=== PATIENT | female | born 1990 | race Caucasian/White ===

== ENCOUNTER 2016-10-20 17:00 | Emergency (ER) | payer OTHER ==
--- NOTE | 2016-10-20 17:18 | ED CLINICAL REPORT ---
Clinical Report - Physicians/Mid Levels [facility] [address] [place] [address] 10/20/2016 17:01 [id number] Time Seen: 17:08 Oct 20 2016. Arrived- By private vehicle. Historian- patient. HISTORY OF PRESENT ILLNESS Chief Complaint: DENTAL PAIN. 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 Pain described as moderate. No nasal discharge. (Patient reports right upper dental pain. Patient reports onto the face. Denies any difficulty swallowing. Reports chronic history of dental pain, worsened after childbirth. Denies any cough. Reports facial swelling. Has been using saltwater rinses, as well as some Motrin. Reports she wants to see a dentist next week. Denies otalgia.). REVIEW OF SYSTEMS No fever, cough, difficulty breathing, nausea or diarrhea. No joint pain or vomiting. All systems otherwise negative, except as recorded above. PAST HISTORY Problems: Asthma. Dental Caries. Additional Surgeries: Appendectomy. Medications: None. Allergies: No Known Drug Allergy. SOCIAL HISTORY Current every day smoker. No alcohol use. ADDITIONAL NOTES The nursing notes have been reviewed. PHYSICAL EXAM Vital Signs: 10/20/2016 17:05 BP: 117/77. HR: 69. RR: 18. O2 saturation: 99%. Temp: 98.1 F. Pain level now: 10/10. Appearance: Alert. Head: Normal external inspection. ENT: Dental decay (Extensive right upper dental decay, as well as left lower decay. Patient with uvula midline.). Ears normal. Nose normal. Lips normal. Uvula midline. No purulent nasal discharge. Neck: Trachea midline. No adenopathy. No meningeal signs. CVS: Normal heart rate and rhythm. Heart sounds normal. Respiratory: No respiratory distress. Breath sounds normal. Neuro: Oriented X 3. PROGRESS AND PROCEDURES Course of Care: Uvula midline, facial swelling, no palpable abscess. Patient to start antibiotics. Patient's with no signs of otitis externa. No facial rash present. No signs of Murray's angina. Full sentences. Able to tolerate her secretions well. Patient is stable. The patient's symptoms are unchanged. Disposition: Discharged. CLINICAL IMPRESSION Moderate dental pain. INSTRUCTIONS Drink plenty of fluids. Prescription Medications: Hydrocodone/APAP 5mg / 325mg: take 1 orally every 6 hours as needed for pain. Dispense ten (10). No refill. Cleocin 300 mg: take 1 capsule orally every 8 hours for 10 days. No refill. Substitution is permissible. Follow-up: Follow up with a specialist. (Electronically signed by Kaylie Retana P.A.-C 10/20/2016 17:43)
--- NOTE | 2016-10-20 17:18 | ED NURSING NOTES ---
Clinical Report - Nurses [facility] [place] [address] [place] [address] 10/20/2016 17:01 [id number] Triage time 17:05. Acuity: LEVEL 4. Chief Complaint: RIGHT UPPER TOOTHACHE and SWELLING OF JAW / FACE. --17:10 Jocelyn Burciaga R.N. 17:05 10/20/16. BP: 117/77. HR: 69. RR: 18. O2 saturation: 99%. Temp: 98.1 F. Pain level now: 05/03. --17:10 Jocelyn Burciaga R.N. Weight: 61.2 kg stated. Height/Length: 63 inches Per Patient. BMI: 23.9. --17:10 Jocelyn Burciaga R.N. Medications None. --17:07 Jocelyn Burciaga R.N. Allergies No Known Drug Allergy. --17:07 Jocelyn Burciaga R.N. History Arrived by private vehicle. Onset. (3 days ago). She has a dental appointment scheduled (10/29). She has had ear pain. ( headed). She has had a toothache. 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 SOCIAL HX: Heavy tobacco smoker (cigarette)- less than 1 pack per day. No alcohol use or drug use. No infectious disease exposure. SELF HARM ASSESSMENT: A self harm assessment was performed. The patient answered "no" to the question "Do you have thoughts of harming or killing yourself?". --17:10 Jocelyn Burciaga R.N. PROBLEMS: Asthma. Dental Caries. --17:08 Jocelyn Burciaga R.N. ADDITIONAL SURGERIES: Appendectomy. --17:08 Jocelyn Burciaga R.N. Interventions ID band on patient. To treatment room. --17:10 Jocelyn Burciaga R.N. PHYSICAL ASSESSMENT Ambulatory to room. GENERAL / NEURO / PSYCH: Alert. Oriented X 4. Appears in no acute distress. (pt reports headache). HEENT: Pupils equal, round and reactive to light. Dental tenderness. Dental decay (right upper incisor area). RESPIRATORY: Respirations not labored. SKIN: Skin is warm. --17:12 Jocelyn Burciaga R.N. NURSING PROGRESS NOTES Call light placed in reach. Bed placed in lowest position. Patient ready for evaluation- chart flagged. Patient waiting for evaluation. --17:12 Jocelyn Burciaga R.N. 17:21 10/20/2016 Hydrocodone-APAP (Hydrocodone-Acetaminophen) PO Tablets 1 tab given. --17:21 Jocelyn Burciaga R.N. 17:22 10/20/2016 Motrin PO Oral Suspension 800 mg given. --17:22 Jocelyn Burciaga R.N. 17:22 10/20/2016 Clindamycin PO Capsules 300 mg given. --17:22 Jocelyn Burciaga R.N. DISPOSITION / DISCHARGE Departure time: 1723. Condition at departure: unchanged and stable. No learning barriers present. Discharge instructions provided and reviewed with the patient. Reviewed warnings. Reviewed medication(s) side effects information. Prescription(s) given to the patient. Reviewed referral to a dentist. Patient verbalized understanding. Written instructions provided in Pashto. The patient was discharged by the physician payroll and benefits assistant. She was discharged home and accompanied by analytical laboratory technician. She left the Emergency Department ambulatory and via private vehicle. Tunnel Elastic Operator Chainstitch driving. --17:34 Jocelyn Burciaga R.N. 17:33 10/20/16. BP: 117/77. HR: 69. RR: 18. O2 saturation: 99%. Pain level now: 05/03. --17:34 Jocelyn Burciaga R.N. Locked/Released at 10/20/2016 17:36 by Jocelyn Burciaga R.N.
--- NOTE | 2016-10-20 17:18 | ED ORDER SUMMARY ---
..... Patient: DARLYN ORTIZ OrderSheet [facility] VisitID: [id number] [place] [address] 25y, F Registration Date/Time: 10/20/2016 ORDER SHEET Weight: 61.2 kg (stated) Allergies: No Known Drug Allergy GENERAL ORDERS: MEDICATION ORDERS: Clindamycin PO 300 mg (NOW) (17:17 10/20/2016 EKoroleva P.A.-C) (Ack 17:17 SStone R.N.) (17:22 SStone R.N.) Motrin PO 800 mg (NOW) (17:17 10/20/2016 EKoroleva P.A.-C) (Ack 17:17 SStone R.N.) (17:22 SStone R.N.) Hydrocodone-APAP PO 5/325 mg (NOW) (17:17 10/20/2016 EKmatheusleadelaida P.A.-C) (Ack 17:17 SStone R.N.) (17:22 SStone R.N.) IV FLUIDS: ORDER SHEET NOTES: [Electronically signed by Jocelyn Burciaga R.N. (17:36 10/20/2016)] [Electronically signed by Kaylie Retana P.A.-C (17:43 10/20/2016)] [Electronically locked/signed by Jocelyn Burciaga R.N. (17:36 10/20/2016)]
--- NOTE | 2016-10-20 17:18 | ED ORDER SUMMARY ---
..... Patient: DARLYN ORTIZ OrderSheet [facility] VisitID: [id number] [place] [address] 25y, F Registration Date/Time: 10/20/2016 ORDER SHEET Weight: 61.2 kg (stated) Allergies: No Known Drug Allergy GENERAL ORDERS: MEDICATION ORDERS: Clindamycin PO 300 mg (NOW) (17:17 10/20/2016 EKoroleva P.A.-C) (Ack 17:17 SStone R.N.) (17:22 SStone R.N.) Motrin PO 800 mg (NOW) (17:17 10/20/2016 EKoroleva P.A.-C) (Ack 17:17 SStone R.N.) (17:22 SStone R.N.) Hydrocodone-APAP PO 5/325 mg (NOW) (17:17 10/20/2016 EKmatheusleadelaida P.A.-C) (Ack 17:17 SStone R.N.) (17:22 SStone R.N.) IV FLUIDS: ORDER SHEET NOTES: [Electronically signed by Jocelyn Burciaga R.N. (17:36 10/20/2016)] [Electronically signed by Kaylie Retana P.A.-C (17:43 10/20/2016)] [Electronically locked/signed by Jocelyn Burciaga R.N. (17:36 10/20/2016)]
--- NOTE | 2016-10-20 17:18 | ED NURSING NOTES ---
Clinical Report - [place] [place] [address] 10/20/2016 17:01 [id number] TRI[facility] Triage time 17:05. Acuity: LEVEL 4. Chief Complaint: RIGHT UPPER TOOTHACHE and SWELLING OF JAW / FACE. --17:10 Jocelyn Burciaga R.N. 17:05 10/20/16. BP: 117/77. HR: 69. RR: 18. O2 saturation: 99%. Temp: 98.1 F. Pain level now: 05/03. --17:10 Jocelyn Burciaga R.N. Weight: 61.2 kg stated. Height/Length: 63 inches Per Patient. BMI: 23.9. --17:10 Jocelyn Burciaga R.N. Medications None. --17:07 Jocelyn Burciaga R.N. Allergies No Known Drug Allergy. --17:07 Jocelyn Burciaga R.N. History Arrived by private vehicle. Onset. (3 days ago). She has a dental appointment scheduled (10/29). She has had ear pain. ( headed). She has had a toothache. 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 SOCIAL HX: Heavy tobacco smoker (cigarette)- less than 1 pack per day. No alcohol use or drug use. No infectious disease exposure. SELF HARM ASSESSMENT: A self harm assessment was performed. The patient answered "no" to the question "Do you have thoughts of harming or killing yourself?". --17:10 Jocelyn Burciaga R.N. PROBLEMS: Asthma. Dental Caries. --17:08 Jocelyn Burciaga R.N. ADDITIONAL SURGERIES: Appendectomy. --17:08 Jocelyn Burciaga R.N. Interventions ID band on patient. To treatment room. --17:10 Jocelyn Burciaga R.N. PHYSICAL ASSESSMENT Ambulatory to room. GENERAL / NEURO / PSYCH: Alert. Oriented X 4. Appears in no acute distress. (pt reports headache). HEENT: Pupils equal, round and reactive to light. Dental tenderness. Dental decay (right upper incisor area). RESPIRATORY: Respirations not labored. SKIN: Skin is warm. --17:12 Jocelyn Burciaga R.N. NURSING PROGRESS NOTES Call light placed in reach. Bed placed in lowest position. Patient ready for evaluation- chart flagged. Patient waiting for evaluation. --17:12 Jocelyn Burciaga R.N. 17:21 10/20/2016 Hydrocodone-APAP (Hydrocodone-Acetaminophen) PO Tablets 1 tab given. --17:21 Jocelyn Burciaga R.N. 17:22 10/20/2016 Motrin PO Oral Suspension 800 mg given. --17:22 Joeclyn Burciaga R.N. 17:22 10/20/2016 Clindamycin PO Capsules 300 mg given. --17:22 Jocelyn Burciaga R.N. DISPOSITION / DISCHARGE Departure time: 1723. Condition at departure: unchanged and stable. No learning barriers present. Discharge instructions provided and reviewed with the patient. Reviewed warnings. Reviewed medication(s) side effects information. Prescription(s) given to the patient. Reviewed referral to a dentist. Patient verbalized understanding. Written instructions provided in Telugu. The patient was discharged by the physician civil engineering assistant. She was discharged home and accompanied by bottom stop attacher. She left the Emergency Department ambulatory and via private vehicle. Hop Farm Worker driving. --17:34 Jocelyn Burciaga R.N. 17:33 10/20/16. BP: 117/77. HR: 69. RR: 18. O2 saturation: 99%. Pain level now: 05/03. --17:34 Jocelyn Burciaga R.N. Locked/Released at 10/20/2016 17:36 by Jocelyn Burciaga R.N.
--- NOTE | 2016-10-20 17:18 | ED CLINICAL REPORT ---
Clinical Report - Physicians/Mid Levels [facility] [address] [place] [address] 10/20/2016 17:01 [id number] Time Seen: 17:08 Oct 20 2016. Arrived- By private vehicle. Historian- patient. HISTORY OF PRESENT ILLNESS Chief Complaint: DENTAL PAIN. 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 Pain described as moderate. No nasal discharge. (Patient reports right upper dental pain. Patient reports onto the face. Denies any difficulty swallowing. Reports chronic history of dental pain, worsened after childbirth. Denies any cough. Reports facial swelling. Has been using saltwater rinses, as well as some Motrin. Reports she wants to see a dentist next week. Denies otalgia.). REVIEW OF SYSTEMS No fever, cough, difficulty breathing, nausea or diarrhea. No joint pain or vomiting. All systems otherwise negative, except as recorded above. PAST HISTORY Problems: Asthma. Dental Caries. Additional Surgeries: Appendectomy. Medications: None. Allergies: No Known Drug Allergy. SOCIAL HISTORY Current every day smoker. No alcohol use. ADDITIONAL NOTES The nursing notes have been reviewed. PHYSICAL EXAM Vital Signs: 10/20/2016 17:05 BP: 117/77. HR: 69. RR: 18. O2 saturation: 99%. Temp: 98.1 F. Pain level now: 10/10. Appearance: Alert. Head: Normal external inspection. ENT: Dental decay (Extensive right upper dental decay, as well as left lower decay. Patient with uvula midline.). Ears normal. Nose normal. Lips normal. Uvula midline. No purulent nasal discharge. Neck: Trachea midline. No adenopathy. No meningeal signs. CVS: Normal heart rate and rhythm. Heart sounds normal. Respiratory: No respiratory distress. Breath sounds normal. Neuro: Oriented X 3. PROGRESS AND PROCEDURES Course of Care: Uvula midline, facial swelling, no palpable abscess. Patient to start antibiotics. Patient's with no signs of otitis externa. No facial rash present. No signs of Murray's angina. Full sentences. Able to tolerate her secretions well. Patient is stable. The patient's symptoms are unchanged. Disposition: Discharged. CLINICAL IMPRESSION Moderate dental pain. INSTRUCTIONS Drink plenty of fluids. Prescription Medications: Hydrocodone/APAP 5mg / 325mg: take 1 orally every 6 hours as needed for pain. Dispense ten (10). No refill. Cleocin 300 mg: take 1 capsule orally every 8 hours for 10 days. No refill. Substitution is permissible. Follow-up: Follow up with a specialist. (Electronically signed by Kaylie Retana P.A.-C 10/20/2016 17:43)
--- NOTE | 2016-10-20 17:43 | ED MAR SUMMARY ---
..... Medication Administration Record [facility] [address] [place] [address] Patient: DARLYN ORTIZ Visit ID: [id number] 25y, F Weight: 61.2 kg Height/Length: 63 in BMI: 23.9 ALLERGIES: No Known Drug Allergy Given 17:10/20/2016 Jocelyn Burciaga R.N. Medication Administered: HYDROCODONE-APAP [PO] (HYDROCODONE-ACETAMINOPHEN), Dose: 1 tab Tablets PO. Medication Ordered: Hydrocodone-APAP PO 5/325 mg (NOW). Given 17:10/20/2016 Jocelyn Burciaga R.N. Medication Administered: CLINDAMYCIN [PO], Dose: 300 mg Capsules PO. Medication Ordered: Clindamycin PO 300 mg (NOW). Given 17:10/20/2016 Jocelyn Burciaga R.N. Medication Administered: MOTRIN [PO], Dose: 800 mg Oral Suspension PO. Medication Ordered: Motrin PO 800 mg (NOW).
--- NOTE | 2016-10-20 17:43 | ED MED RECONCILIATION SUMMARY ---
Patient: DARLYN ORTIZ Medication Reconciliation Report [facility] VisitID: [id number] [address] [place] [address] 25y, F Registration Date/Time: 10/20/2016 Weight: 61.2 kg Height/Length: 63 in. BMI: 23.9 ALLERGIES: No Known Drug Allergy The patient's Home Medications are listed below: NONE. The source(s) of the original Home Medication information: Not obtained. The following Medications were given to the patient in the Emergency Department: Hydrocodone-APAP [PO] PO 1 tab, administered: 10/20/2016 5:21:00 PM Motrin [PO] PO 800 mg, administered: 10/20/2016 5:22:00 PM Clindamycin [PO] PO 300 mg, administered: 10/20/2016 5:22:00 PM The following Medications were prescribed to the patient: Hydrocodone/APAP 5mg / 325mg: take 1 orally every 6 hours as needed for pain. Dispense ten (10). No refill. -- Kaylie Retana P.A.-Roberto Carlos Cleocin 300 mg: take 1 capsule orally every 8 hours for 10 days. No refill. Substitution is permissible. -- Kaylie Retana P.A.-C
--- NOTE | 2016-10-20 17:43 | ED DISCHARGE INSTRUCTIONS ---
Patient: DARLYN ORTIZ General Instructions [facility] VisitID: [id number] [place] [place] [address] 25y, F Registration Date/Time: 10/20/2016 Moderate dental pain. INSTRUCTIONS Drink plenty of fluids. Prescription Medications: Hydrocodone/APAP 5mg / 325mg: take 1 orally every 6 hours as needed for pain. Dispense ten (10). No refill. Cleocin 300 mg: take 1 capsule orally every 8 hours for 10 days. No refill. Substitution is permissible. Follow-up: Follow up with a specialist. ADDITIONAL INFORMATION Dental Pain A crack or cavity in the tooth, which exposes the sensitive inner area of the tooth can cause tooth pain. An infection in the gum or the root of the tooth can cause pain and swelling. The pain is often made worse by drinking hot or cold fluids, or biting on hard foods. Pain may spread from the tooth to the ear or jaw on the same side. Home Care: Avoid hot and cold foods and liquids since your tooth may be sensitive to temperature changes. If your tooth is chipped or cracked, or if there is a large open cavity, apply OIL OF CLOVES (available xoib-qsv-drxigqi in drug stores) directly to the tooth to reduce pain. Some pharmacies carry an wbzm-oev-txykrno "toothache kit." This contains a paste, which can be applied over the exposed tooth to decrease sensitivity. A cold pack on your jaw over the sore area may help reduce pain. You may use acetaminophen (Tylenol) or ibuprofen (Motrin, Advil) to control pain, unless another medicine was prescribed. [ NOTE: If you have chronic liver or kidney disease or ever had a stomach ulcer or GI bleeding, talk with your doctor before using these medicines.] If you have signs of an infection, an antibiotic will be given. Take it as directed. Follow-Up as directed with a dentist. Your pain may go away with the treatment given. However, only a dentist can fully evaluate and treat the cause and prevent the pain from coming back again. TOOTHACHE IS A SIGN OF DISEASE IN YOUR TOOTH AND SHOULD BE EXAMINED AND TREATED BY A DENTIST. Get Prompt Medical Attention if any of the following occur: Your face becomes swollen or red Pain worsens or spreads to the neck Fever over 100.4 F (38.0 C) Unusual drowsiness; headache or stiff neck; weakness or fainting Pus drains from the tooth Difficulty swallowing or breathing Hydrocodone Bitartrate, Acetaminophen Oral tablet What is this medicine? ACETAMINOPHEN; HYDROCODONE (a set a MATT virgen fen; denver droe KOE done) is a pain reliever. It is used to treat mild to moderate pain. How should I use this medicine? Take this medicine by mouth. Swallow it with a full glass of water. Follow the directions on the prescription label. If the medicine upsets your stomach, take the medicine with food or milk. Do not take more than you are told to take. Talk to your cable rigger regarding the use of this medicine in children. This medicine is not approved for use in children. What side effects may I notice from receiving this medicine? Side effects that you should report to your doctor or health long term care pharmacist as soon as possible: allergic reactions like skin rash, itching or hives, swelling of the face, lips, or tongue breathing problems confusion feeling faint or lightheaded, falls stomach pain yellowing of the eyes or skin Side effects that usually do not require medical attention (report to your doctor or health long term care pharmacist if they continue or are bothersome): nausea, vomiting stomach upset What may interact with this medicine? alcohol antihistamines isoniazid medicines for depression, anxiety, or psychotic disturbances medicines for sleep muscle relaxants naltrexone narcotic medicines (opiates) for pain phenobarbital ritonavir tramadol What if I miss a dose? If you miss a dose, take it as soon as you can. If it is almost time for your next dose, take only that dose. Do not take double or extra doses. Where should I keep my medicine? Keep out of the reach of children. This medicine can be abused. Keep your medicine in a safe place to protect it from theft. Do not share this medicine with anyone. Selling or giving away this medicine is dangerous and against the law. Store at room temperature between 15 and 30 degrees C (59 and 86 degrees F). Protect from light. Keep container tightly closed. Throw away any unused medicine after the expiration date. Discard unused medicine and used packaging carefully. Pets and children can be harmed if they find used or lost packages. What should I tell my health care provider before I take this medicine? They need to know if you have any of these conditions: brain tumor Crohn's disease, inflammatory bowel disease, or ulcerative colitis drink more than 3 alcohol-containing drinks per day drug abuse or addiction head injury heart or circulation problems kidney disease or problems going to the bathroom liver disease lung disease, asthma, or breathing problems an unusual or allergic reaction to acetaminophen, hydrocodone, other opioid analgesics, other medicines, foods, dyes, or preservatives or trying to get breast-feeding What should I watch for while using this medicine? Tell your doctor or health long term care pharmacist if your pain does not go away, if it gets worse, or if you have new or a different type of pain. You may develop tolerance to the medicine. Tolerance means that you will need a higher dose of the medicine for pain relief. Tolerance is normal and is expected if you take the medicine for a long time. Do not suddenly stop taking your medicine because you may develop a severe reaction. Your body becomes used to the medicine. This does NOT mean you are addicted. Addiction is a behavior related to getting and using a drug for a non-medical reason. If you have pain, you have a medical reason to take pain medicine. Your doctor will tell you how much medicine to take. If your doctor wants you to stop the medicine, the dose will be slowly lowered over time to avoid any side effects. You may get drowsy or dizzy when you first start taking the medicine or change doses. Do not drive, use machinery, or do anything that may be dangerous until you know how the medicine affects you. Stand or sit up slowly. There are different types of narcotic medicines (opiates) for pain. If you take more than one type at the same time, you may have more side effects. Give your health care provider a list of all medicines you use. Your doctor will tell you how much medicine to take. Do not take more medicine than directed. Call emergency for help if you have problems breathing. The medicine will cause constipation. Try to have a bowel movement at least every 2 to 3 days. If you do not have a bowel movement for 3 days, call your doctor or health long term care pharmacist. Too much acetaminophen can be very dangerous. Do not take Tylenol (acetaminophen) or medicines that contain acetaminophen with this medicine. Many non-prescription medicines contain acetaminophen. Always read the labels carefully. Clindamycin Hydrochloride Oral capsule What is this medicine? CLINDAMYCIN (KLIN da MYE sin) is a lincosamide antibiotic. It is used to treat certain kinds of bacterial infections. It will not work for colds, flu, or other viral infections. How should I use this medicine? Take this medicine by mouth with a full glass of water. Follow the directions on the prescription label. You can take this medicine with food or on an empty stomach. If the medicine upsets your stomach, take it with food. Take your medicine at regular intervals. Do not take your medicine more often than directed. Take all of your medicine as directed even if you think your are better. Do not skip doses or stop your medicine early. Talk to your cable rigger regarding the use of this medicine in children. Special care may be needed. What side effects may I notice from receiving this medicine? Side effects that you should report to your doctor or health long term care pharmacist as soon as possible: allergic reactions like skin rash, itching or hives, swelling of the face, lips, or tongue dark urine pain on swallowing redness, blistering, peeling or loosening of the skin, including inside the mouth unusual bleeding or bruising unusually weak or tired yellowing of eyes or skin Side effects that usually do not require medical attention (report to your doctor or health long term care pharmacist if they continue or are bothersome): diarrhea itching in the rectal or genital area joint pain nausea, vomiting stomach pain What may interact with this medicine? chloramphenicol erythromycin kaolin products What if I miss a dose? If you miss a dose, take it as soon as you can. If it is almost time for your next dose, take only that dose. Do not take double or extra doses. Where should I keep my medicine? Keep out of the reach of children. Store at room temperature between 20 and 25 degrees C (68 and 77 degrees F). Throw away any unused medicine after the expiration date. What should I tell my health care provider before I take this medicine? They need to know if you have any of these conditions: kidney disease liver disease stomach problems like colitis an unusual or allergic reaction to clindamycin, lincomycin, or other medicines, foods, dyes like tartrazine or preservatives or trying to get breast-feeding What should I watch for while using this medicine? Tell your doctor or healthcare professional if your symptoms do not start to get better or if they get worse. Do not treat diarrhea with over the counter products. Contact your doctor if you have diarrhea that lasts more than 2 days or if it is severe and watery. You have been given the following additional information: Dental Pain Hydrocodone Bitartrate, Acetaminophen Oral tablet Clindamycin Hydrochloride Oral capsule (Electronically signed by Kaylie Retana P.A.-C 10/20/2016 17:43)
--- NOTE | 2016-10-20 17:43 | ED MED RECONCILIATION SUMMARY ---
Patient: DARLYN ORTIZ Medication Reconciliation Report [facility] VisitID: [id number] [address] [place] [address] 25y, F Registration Date/Time: 10/20/2016 Weight: 61.2 kg Height/Length: 63 in. BMI: 23.9 ALLERGIES: No Known Drug Allergy The patient's Home Medications are listed below: NONE. The source(s) of the original Home Medication information: Not obtained. The following Medications were given to the patient in the Emergency Department: Hydrocodone-APAP [PO] PO 1 tab, administered: 10/20/2016 5:21:00 PM Motrin [PO] PO 800 mg, administered: 10/20/2016 5:22:00 PM Clindamycin [PO] PO 300 mg, administered: 10/20/2016 5:22:00 PM The following Medications were prescribed to the patient: Hydrocodone/APAP 5mg / 325mg: take 1 orally every 6 hours as needed for pain. Dispense ten (10). No refill. -- Kaylie Retana P.A.-Roberto Carlos Cleocin 300 mg: take 1 capsule orally every 8 hours for 10 days. No refill. Substitution is permissible. -- Kaylie Retana P.A.-C
--- NOTE | 2016-10-20 17:43 | ED MAR SUMMARY ---
..... Medication Administration Record [facility] [address] [place] [address] Patient: DARLYN ORTIZ Visit ID: [id number] 25y, F Weight: 61.2 kg Height/Length: 63 in BMI: 23.9 ALLERGIES: No Known Drug Allergy Given 17:10/20/2016 Jocelyn Burciaga R.N. Medication Administered: HYDROCODONE-APAP [PO] (HYDROCODONE-ACETAMINOPHEN), Dose: 1 tab Tablets PO. Medication Ordered: Hydrocodone-APAP PO 5/325 mg (NOW). Given 17:10/20/2016 Jocelyn Burciaga R.N. Medication Administered: CLINDAMYCIN [PO], Dose: 300 mg Capsules PO. Medication Ordered: Clindamycin PO 300 mg (NOW). Given 17:10/20/2016 Jocelyn Burciaga R.N. Medication Administered: MOTRIN [PO], Dose: 800 mg Oral Suspension PO. Medication Ordered: Motrin PO 800 mg (NOW).
--- NOTE | 2016-10-20 17:43 | ED DISCHARGE INSTRUCTIONS ---
Patient: DARLYN ORTIZ General Instructions [facility] VisitID: [id number] [place] [address] 25y, F Registration Date/Time: 10/20/2016 Moderate dental pain. INSTRUCTIONS Drink plenty of fluids. Prescription Medications: Hydrocodone/APAP 5mg / 325mg: take 1 orally every 6 hours as needed for pain. Dispense ten (10). No refill. Cleocin 300 mg: take 1 capsule orally every 8 hours for 10 days. No refill. Substitution is permissible. Follow-up: Follow up with a specialist. ADDITIONAL INFORMATION Dental Pain A crack or cavity in the tooth, which exposes the sensitive inner area of the tooth can cause tooth pain. An infection in the gum or the root of the tooth can cause pain and swelling. The pain is often made worse by drinking hot or cold fluids, or biting on hard foods. Pain may spread from the tooth to the ear or jaw on the same side. Home Care: Avoid hot and cold foods and liquids since your tooth may be sensitive to temperature changes. If your tooth is chipped or cracked, or if there is a large open cavity, apply OIL OF CLOVES (available deqi-sts-hzwjgib in drug stores) directly to the tooth to reduce pain. Some pharmacies carry an yjcz-egx-uiijvda "toothache kit." This contains a paste, which can be applied over the exposed tooth to decrease sensitivity. A cold pack on your jaw over the sore area may help reduce pain. You may use acetaminophen (Tylenol) or ibuprofen (Motrin, Advil) to control pain, unless another medicine was prescribed. [ NOTE: If you have chronic liver or kidney disease or ever had a stomach ulcer or GI bleeding, talk with your doctor before using these medicines.] If you have signs of an infection, an antibiotic will be given. Take it as directed. Follow-Up as directed with a dentist. Your pain may go away with the treatment given. However, only a dentist can fully evaluate and treat the cause and prevent the pain from coming back again. TOOTHACHE IS A SIGN OF DISEASE IN YOUR TOOTH AND SHOULD BE EXAMINED AND TREATED BY A DENTIST. Get Prompt Medical Attention if any of the following occur: Your face becomes swollen or red Pain worsens or spreads to the neck Fever over 100.4 F (38.0 C) Unusual drowsiness; headache or stiff neck; weakness or fainting Pus drains from the tooth Difficulty swallowing or breathing Hydrocodone Bitartrate, Acetaminophen Oral tablet What is this medicine? ACETAMINOPHEN; HYDROCODONE (a set a MATT virgen fen; denver droe KOE done) is a pain reliever. It is used to treat mild to moderate pain. How should I use this medicine? Take this medicine by mouth. Swallow it with a full glass of water. Follow the directions on the prescription label. If the medicine upsets your stomach, take the medicine with food or milk. Do not take more than you are told to take. Talk to your regulatory technician regarding the use of this medicine in children. This medicine is not approved for use in children. What side effects may I notice from receiving this medicine? Side effects that you should report to your doctor or health lawn care specialist as soon as possible: allergic reactions like skin rash, itching or hives, swelling of the face, lips, or tongue breathing problems confusion feeling faint or lightheaded, falls stomach pain yellowing of the eyes or skin Side effects that usually do not require medical attention (report to your doctor or health lawn care specialist if they continue or are bothersome): nausea, vomiting stomach upset What may interact with this medicine? alcohol antihistamines isoniazid medicines for depression, anxiety, or psychotic disturbances medicines for sleep muscle relaxants naltrexone narcotic medicines (opiates) for pain phenobarbital ritonavir tramadol What if I miss a dose? If you miss a dose, take it as soon as you can. If it is almost time for your next dose, take only that dose. Do not take double or extra doses. Where should I keep my medicine? Keep out of the reach of children. This medicine can be abused. Keep your medicine in a safe place to protect it from theft. Do not share this medicine with anyone. Selling or giving away this medicine is dangerous and against the law. Store at room temperature between 15 and 30 degrees C (59 and 86 degrees F). Protect from light. Keep container tightly closed. Throw away any unused medicine after the expiration date. Discard unused medicine and used packaging carefully. Pets and children can be harmed if they find used or lost packages. What should I tell my health care provider before I take this medicine? They need to know if you have any of these conditions: brain tumor Crohn's disease, inflammatory bowel disease, or ulcerative colitis drink more than 3 alcohol-containing drinks per day drug abuse or addiction head injury heart or circulation problems kidney disease or problems going to the bathroom liver disease lung disease, asthma, or breathing problems an unusual or allergic reaction to acetaminophen, hydrocodone, other opioid analgesics, other medicines, foods, dyes, or preservatives or trying to get breast-feeding What should I watch for while using this medicine? Tell your doctor or health lawn care specialist if your pain does not go away, if it gets worse, or if you have new or a different type of pain. You may develop tolerance to the medicine. Tolerance means that you will need a higher dose of the medicine for pain relief. Tolerance is normal and is expected if you take the medicine for a long time. Do not suddenly stop taking your medicine because you may develop a severe reaction. Your body becomes used to the medicine. This does NOT mean you are addicted. Addiction is a behavior related to getting and using a drug for a non-medical reason. If you have pain, you have a medical reason to take pain medicine. Your doctor will tell you how much medicine to take. If your doctor wants you to stop the medicine, the dose will be slowly lowered over time to avoid any side effects. You may get drowsy or dizzy when you first start taking the medicine or change doses. Do not drive, use machinery, or do anything that may be dangerous until you know how the medicine affects you. Stand or sit up slowly. There are different types of narcotic medicines (opiates) for pain. If you take more than one type at the same time, you may have more side effects. Give your health care provider a list of all medicines you use. Your doctor will tell you how much medicine to take. Do not take more medicine than directed. Call emergency for help if you have problems breathing. The medicine will cause constipation. Try to have a bowel movement at least every 2 to 3 days. If you do not have a bowel movement for 3 days, call your doctor or health lawn care specialist. Too much acetaminophen can be very dangerous. Do not take Tylenol (acetaminophen) or medicines that contain acetaminophen with this medicine. Many non-prescription medicines contain acetaminophen. Always read the labels carefully. Clindamycin Hydrochloride Oral capsule What is this medicine? CLINDAMYCIN (KLIN da MYE sin) is a lincosamide antibiotic. It is used to treat certain kinds of bacterial infections. It will not work for colds, flu, or other viral infections. How should I use this medicine? Take this medicine by mouth with a full glass of water. Follow the directions on the prescription label. You can take this medicine with food or on an empty stomach. If the medicine upsets your stomach, take it with food. Take your medicine at regular intervals. Do not take your medicine more often than directed. Take all of your medicine as directed even if you think your are better. Do not skip doses or stop your medicine early. Talk to your regulatory technician regarding the use of this medicine in children. Special care may be needed. What side effects may I notice from receiving this medicine? Side effects that you should report to your doctor or health lawn care specialist as soon as possible: allergic reactions like skin rash, itching or hives, swelling of the face, lips, or tongue dark urine pain on swallowing redness, blistering, peeling or loosening of the skin, including inside the mouth unusual bleeding or bruising unusually weak or tired yellowing of eyes or skin Side effects that usually do not require medical attention (report to your doctor or health lawn care specialist if they continue or are bothersome): diarrhea itching in the rectal or genital area joint pain nausea, vomiting stomach pain What may interact with this medicine? chloramphenicol erythromycin kaolin products What if I miss a dose? If you miss a dose, take it as soon as you can. If it is almost time for your next dose, take only that dose. Do not take double or extra doses. Where should I keep my medicine? Keep out of the reach of children. Store at room temperature between 20 and 25 degrees C (68 and 77 degrees F). Throw away any unused medicine after the expiration date. What should I tell my health care provider before I take this medicine? They need to know if you have any of these conditions: kidney disease liver disease stomach problems like colitis an unusual or allergic reaction to clindamycin, lincomycin, or other medicines, foods, dyes like tartrazine or preservatives or trying to get breast-feeding What should I watch for while using this medicine? Tell your doctor or healthcare professional if your symptoms do not start to get better or if they get worse. Do not treat diarrhea with over the counter products. Contact your doctor if you have diarrhea that lasts more than 2 days or if it is severe and watery. You have been given the following additional information: Dental Pain Hydrocodone Bitartrate, Acetaminophen Oral tablet Clindamycin Hydrochloride Oral capsule (Electronically signed by Kaylie Retana P.A.-C 10/20/2016 17:43)
== END 2016-10-20 17:23 | disposition home or self-care (01) ==
LOC: ED SRH 17:00
DX: K08.89 Other specified disorders of teeth and supporting structures (principal)